=== PATIENT | female | born 2000 | race Caucasian/White ===

== ENCOUNTER 2022-11-03 21:42 | Emergency (ER) | payer BC, SELFPAY ==
--- NOTE | ~2022-11-03 | XR_ITS ---
Portable chest x-ray Comparison: None Clinical History: Weakness, dizziness Findings: Lungs are clear, without focal consolidation or pleural effusion. Cardiomediastinal silho uette is stable. Bones and soft tissues are unremarkable. Impression: Normal chest. Reviewed, dictated and finalized at [facility]. [employer] Impression: Normal chest.
[2022-11-03 22:09] VITALS: BP 117/85; PULSE 93; RESP 16; TEMP 36.3; O2SAT 100
--- NOTE | 2022-11-03 22:18 | ECG_ITS ---
Measurements Intervals [place] Rate: 83 P: -11 NC: 120 QRS: 67 QRSD: 90 T: 8 QT: 351 QTc: 414 Interpretive Statements SINUS RHYTHM WITH SINUS ARRHYTHMIA BORDERLINE T WAVE ABNORMALITY- INFERIOR LEADS BORDERLINE ECG NO PREVIOUS ECG AVAILABLE FOR COMPARISON Electronically Signed On 11-04-2022 6:28:34 [employer] by Eren Galan D.O.
[2022-11-03 22:38] LABS: Basophils Absolute Auto 0.1 K/mm3 (0.0-0.1); Basophils Percent Auto 1.1 % (0.2-1.2); Eosinophils Absolute Auto 0.2 K/mm3 (0-0.3); Eosinophils Percent Auto 2.1 % (0-4.4); Hematocrit 40.4 % (37.0-47.0); Hemoglobin 13.5 g/dL (12.0-15.0); Immature Granulocyte Absolute 0.01 K/mm3 (0.00-0.031); Immature Granulocyte Percent A 0.1 % (0-0.5); Lymphocytes Absolute Auto 2.81 K/mm3 (0.9-3.2); Lymphocytes Percent Auto 34.4 % (18.3-44.2); Mean Corpuscular HGB Conc 33.4 g/dl (32-36); Mean Corpuscular Hemoglobin 29.2 pg (26-34); Mean Corpuscular Volume 87.3 fl (80-100); Mean Platelet Volume 9.5 fl (7.4-10.4); Monocytes Absolute Auto 0.7 K/mm3 (0.1-0.6); Monocytes Percent Auto 8.9 % (2.6-8.5); Neutrophils Absolute Auto 4.4 K/mm3 (1.3-6.7); Neutrophils Percent Auto 53.4 % (45.5-73.1); Platelet Count Result 387 k/mm3 (150-375); Red Blood Count 4.63 M/mm3 (4.2-5.4); Red Cell Distribution Width 12.9 % (11.5-14.5); White Blood Count 8.2 K/mm3 (4.5-10.0)
[2022-11-03 22:49] LABS: Alanine Aminotransferase 17 U/L (6-35); Alkaline Phosphatase 82 U/L (38-126); Anion Gap 9 mmol/L (8-16); Aspartate Amino Transferase 26 U/L (14-36); Bilirubin,Total 0.5 mg/dL (0.2-1.3); Blood Urea Nitrogen 15 mg/dL (7-17); Calcium 9.3 mg/dL (8.4-10.2); Carbon Dioxide 26 mmol/L (22-30); Chloride 103 mmol/L (98-107); Estimated CRCL calculation 94 ml/min; Estimated Glomerular Filt Rate > 60; Glucose 96 mg/dL (65-110); Sodium 138 mmol/L (137-145)
[2022-11-04] VITALS (20 sets, daily range): BP systolic 105–124; BP diastolic 69–105; PULSE 75–115; RESP 11–19; TEMP 36.6; O2SAT 99–100
[2022-11-04] MEDS: SODIUM CHLORIDE 0.9% IV 1,000 ML 999 ML IV CONT ×3 (03:30→06:21)
[2022-11-04 04:24] LABS: Lactic Acid Reflex 0.9 mmol/L (0.7-2.0); Magnesium 2.4 mg/dL (1.6-2.3)
[2022-11-04 04:37] LABS: Troponin I < 0.012 ng/mL (0.000-0.034)
--- NOTE | 2022-11-04 04:40 | ED.GENADULT ---
HPI - General Adult General Chief complaint: Syncope Stated complaint: syncope Time Seen by Provider: 11/04/22 03:24 History of Present Illness HPI narrative: Patient 22-year-old female who presents the emergency department with chief complaint of syncopal episodes. Patient reports that she has been feeling lightheaded today and has had chills patient states that she has had several episodes where she is almost passed out and then had 1 brief episode where she became lightheaded and then was out for a few seconds patient states she still having some chills and feels winded. Related Data Allergies Allergy/AdvReac Type Severity Reaction Status Date / Time No Known Allergies Allergy Unverified 02/23/16 18:38 Review of Systems Review of Systems: A 10 system review of systems was completed on the patient and is negative except for what is stated in the HPI. Nursing and ancillary documentation was reviewed. Exam Narrative: GENERAL: Well-appearing, well-nourished, and in no acute distress. HEAD: Normocephalic, atraumatic. EYES: PERRLA and EOMI. ENT: Nares clear, no rhinorrhea or epistaxis. Mucous membranes moist. NECK: Supple. CHEST: Clear to auscultation. No respiratory distress. HEART: Regular rate and rhythm. No murmur heard. Normal peripheral pulses. ABDOMEN: Soft, nontender, nondistended, normal active bowel sounds. EXTREMITIES: Normal range of motion. No edema. SKIN: Warm, dry, no rash. NEURO: No focal deficits. Alert and oriented x3. PSYCH: Normal mood and affect. Course Course Emergency Course: Differential diagnosis includes electrolyte abnormality, viral syndrome, dysrhythmia, EKG interpreted by [facility] sinus rhythm rate of [address] elevation or ST depression Chest x-ray shows no focal infiltrate Vital Signs Vital signs: Vital Signs Temperature 36.3 C L 11/03/22 22:09 Pulse Rate 93 11/03/22 22:09 Respiratory Rate 16 11/03/22 22:09 Blood Pressure 117/85 11/03/22 22:09 Pulse Oximetry 100 11/03/22 22:09 Oxygen Delivery Room Air 11/03/22 22:09 Temperature 36.6 C 11/04/22 03:59 Pulse Rate 79 11/04/22 06:00 Respiratory Rate 13 11/04/22 06:00 Blood Pressure 105/73 11/04/22 05:30 Pulse Oximetry 99 11/04/22 06:00 Oxygen Delivery Room Air 11/04/22 03:50 Medical Decision Making MDM Narrative Medical decision making narrative: Differential diagnosis includes electrolyte abnormality, dysrhythmia, POTS, infection Laboratory studies were obtained which showed no significant abnormalities. Chest x-ray showed no focal findings . Patient was negative for COVID and negative for flu After ambulating the patient after receiving 2 L of fluids heart rate only increased to 110. The patient had no syncopal episodes in the emergency department. Patient will be discharged home to follow-up with her primary care provider Vital Signs Vital Signs: Vital Signs Temperature 36.3 C L 11/03/22 22:09 Pulse Rate 93 11/03/22 22:09 Respiratory Rate 16 11/03/22 22:09 Blood Pressure 117/85 11/03/22 22:09 Pulse Oximetry 100 11/03/22 22:09 Oxygen Delivery Room Air 11/03/22 22:09 Temperature 36.6 C 11/04/22 03:59 Pulse Rate 79 11/04/22 06:00 Respiratory Rate 13 11/04/22 06:00 Blood Pressure 105/73 11/04/22 05:30 Pulse Oximetry 99 11/04/22 06:00 Oxygen Delivery Room Air 11/04/22 03:50 Lab Data 11/03/22 22:20 11/03/22 22:20 Labs: Lab Results 11/03/22 11/03/22 11/04/22 Range/Units 22:20 22:20 03:52 WBC 8.2 (4.5-10.0) K/mm3 RBC 4.63 (4.2-5.4) M/mm3 Hgb 13.5 (12.0-15.0) g/dL Hct 40.4 (37.0-47.0) % MCV 87.3 (80-100) fl MCH 29.2 (26-34) pg MCHC 33.4 (32-36) g/dl RDW 12.9 (11.5-14.5) % Plt Count 387 H (150-375) k/mm3 MPV 9.5 (7.4-10.4) fl Immature Gran % (Auto) 0.1 (0-0.5) % Neut % (Auto) 53.4 (45.5-73.1) % Lymph % (Auto) 34.4 (
[2022-11-04 04:46] LABS: Influenza A QL RT-PCR Negative (Negative); Influenza B QL RT-PCR Negative (Negative); SARS-CoV-2 RNA PCR Negative
[2022-11-04 04:49] LABS: INR 1.1; Prothrombin Time 13.3 Seconds (11.1-14.7)
[2022-11-04 05:05] LABS: Appearance Urine Clear (Clear); Bilirubin Urine Negative (Negative); Blood Urine Negative (Negative); Color Urine Yellow (Yellow); Glucose Urine UA Negative (Negative); Ketones Urine Negative (Negative); Leukocyte Esterase Ur Negative LEU/UL (Negative); Nitrate Urine Negative (Negative); Protein Urine Negative (Negative); Specific Grav Ur 1.005 (1.001-1.035); Urobilinogen Urine 0.2 mg/dL (<2.0)
[2022-11-04 06:21] LABS: Add Urine Microscopic? NO
== END 2022-11-04 07:16 | disposition home or self-care (01) ==
PROVIDERS: Emergency Medicine; Emergency Provider Emergency Medicine; PCP Physician Assistant
DX: R55 Syncope and collapse (principal); R00.2 Palpitations; Z20.822 Contact with and (suspected) exposure to COVID-19; R94.31 Abnormal electrocardiogram [ECG] [EKG]
CPT/HCPCS: 36415; 71045; 80053; 81003; 81025; 83605; 83735; 84484; 85025; 85610; 87636; 93005; 96360; 96361; 99284; J7030